=== PATIENT | female | born 1985 | race Two or more races ===

== ENCOUNTER 2023-01-26 20:22 | Emergency (ER) | payer OTHER ==
[~2023-01-26] VITALS: Ht 170.2 cm; Wt 79.4 kg
== END 2023-01-27 05:07 | disposition home or self-care (01) ==
LOC: ER 20:22
DX: O21.0 Mild hyperemesis gravidarum (principal); Z3A.12 12 weeks gestation of pregnancy

== ENCOUNTER 2023-06-26 13:56 | Inpatient (IN) | payer OTHER ==
[~2023-06-26] VITALS: Ht 170.2 cm; Wt 0.9 kg
[2023-06-26] MEDS ORDERED: PRENATAL TABLE1 EAC4 PO (14:42)
[2023-07-01] MEDS ORDERED: OXYC1TAB9 PO (08:10)
[2023-07-01] MEDS ORDERED: KETO10TA2 PO (08:10)
== END 2023-07-01 15:31 | disposition home or self-care (01) | DRG 786 ==
LOC: LDR 13:56 → O/R 06-28 15:12 → OB/GYN 06-28 18:25
PROVIDERS: Obstetrics & Gynecology Maternal & Fetal Medicine; ADMIT Obstetrics & Gynecology Gynecology; ATTEND Obstetrics & Gynecology Gynecology
PROC: BY4FZZZ Ultrasonography of Third Trimester, Single Fetus (ICD-10-PCS; 2023-06-26)
PROC: 4A1HXCZ Monitoring of Products of Conception, Cardiac Rate, External Approach (ICD-10-PCS; 2023-06-26)
PROC: 0UB10ZZ Excision of Left Ovary, Open Approach (ICD-10-PCS; 2023-06-28)
PROC: 10D00Z1 Extraction of Products of Conception, Low, Open Approach (ICD-10-PCS; principal; 2023-06-28 14:00)
DX: O36.8130 Decreased fetal movements, third trimester, not applicable or unspecified (principal); O41.1230 Chorioamnionitis, third trimester, not applicable or unspecified; O60.14X0 Preterm labor third trimester with preterm delivery third trimester, not applicable or unspecified; O42.113 Preterm premature rupture of membranes, onset of labor more than 24 hours following rupture, third trimester; O62.0 Primary inadequate contractions; O34.83 Maternal care for other abnormalities of pelvic organs, third trimester; N83.292 Other ovarian cyst, left side; Z3A.34 34 weeks gestation of pregnancy; Z20.822 Contact with and (suspected) exposure to COVID-19